=== PATIENT | male | born 1995 | race Caucasian/White ===

== ENCOUNTER 2016-07-20 23:42 | Emergency (ER) | payer MEDICAID | END 2016-07-21 01:36 | disposition home or self-care (01) | LOC: ER 23:42 | DX: J10.1 Influenza due to other identified influenza virus with other respiratory manifestations (principal); F17.210 Nicotine dependence, cigarettes, uncomplicated | CPT/HCPCS: 71020; 87804; 87880 ==

== ENCOUNTER 2016-07-25 22:15 | Emergency (ER) | payer MEDICAID ==
[2016-07-26] MEDS ORDERED: ONDANSETRON ODT 4 MG TAB ONE (09:49)
== END 2016-07-25 23:44 | disposition left against medical advice (07) ==
LOC: ER 22:15
DX: Z53.21 Procedure and treatment not carried out due to patient leaving prior to being seen by health care provider (principal)
CPT/HCPCS: 99281